=== PATIENT | female | born 1955 | race Caucasian/White ===

== ENCOUNTER → 2016-11-06 | Outpatient (CLI) | payer BC, OTHER ==
[~2016-11-06] MED LIST: AMPH10TA2 PO; EST1; thyroid armour
[2016-11-06 18:17] LABS: THYROID STIMULATING HORMONE 1.05 uIu/ml (0.300-4.500)
== END | disposition home or self-care (01) ==
LOC: C.LABMFLN 13:43
PROVIDERS: ATTEND Internal Medicine Endocrinology, Diabetes & Metabolism
DX: E03.9 Hypothyroidism, unspecified (principal)

== ENCOUNTER → 2016-12-10 | Outpatient (CLI) | payer BC ==
--- NOTE | 2016-12-10 14:37 | DIAGNOSTIC IMAGING REPORT ---
LEFT THUMB 3 VIEWS CLINICAL HISTORY: Left thumb pain COMPARISON: None. DISCUSSION: There are moderate osteoarthritic changes the level the first carpometacarpal joint. No acute fractures are visualized. Mild degenerative changes are present the level of the interphalangeal joint. IMPRESSION: No acute fractures. Moderate osteoarthritic changes at the level of the first carpal metacarpal joint. Electronically signed by: Pratik Cesar M.D. 12/10/2016 2:36 PM Dictated Date/Time: 12/10/2016 2:35 PM
--- NOTE | 2016-12-10 14:38 | DIAGNOSTIC IMAGING REPORT ---
RIGHT THUMB 3 VIEWS CLINICAL HISTORY: Right thumb pain COMPARISON: None. DISCUSSION: There are mild osteoarthritic changes the level the first carpometacarpal joint and interphalangeal joint. No acute fractures are visualized. There are no erosive or destructive changes. IMPRESSION: Mild degenerative change. No acute fractures. Electronically signed by: Pratik Cesar M.D. 12/10/2016 2:37 PM Dictated Date/Time: 12/10/2016 2:36 PM
== END | disposition home or self-care (01) ==
LOC: C.RADBC 14:10
PROVIDERS: ATTEND Anesthesiology
DX: M79.644 Pain in right finger(s) (principal); M79.645 Pain in left finger(s)

== ENCOUNTER → 2017-07-16 | Outpatient (CLI) | payer BC ==
--- NOTE | 2017-07-17 14:34 | MAMMOGRAPHY REPORT ---
BILATERAL DIGITAL SCREENING MAMMOGRAM TOMOSYNTHESIS WITH CAD: 07/16/2017 CLINICAL HISTORY: Routine screening. Patient has no complaints. TECHNIQUE: Breast tomosynthesis in addition to standard 2D mammography was performed. Current study was also evaluated with a Computer Aided Detection (CAD) system. COMPARISON: Comparison is made to exams dated: 07/11/2016 mammogram, 07/03/2015 mammogram, 06/30/2014 mammogram, 06/16/2013 mammogram, 05/18/2012 mammogram, and 05/15/2011 mammogram - [facility] [address] BREAST COMPOSITION: The tissue of both breasts is heterogeneously dense, which may obscure small mas ses. FINDINGS: No suspicious masses, calcifications, or areas of architectural distortion are noted in ei ther breast. There has been no significant interval change compared to prior exams. IMPRESSION: ACR BI-RADS CATEGORY 1: NEGATIVE There is no mammographic evidence of malignancy. A 1 year screening mammogram is recommended. The pa tient will receive written notification of the results. Approximately 10% of breast cancers are not detected with mammography. A negative mammographic report should not delay biopsy if a clinically suggestive mass is present. Robina Garrido M.D. ah/:07/16/2017 16:04:58 Communications Project Lead: Susanna ORTEGA(R)(M), [facility] [address] letter sent: Normal 1/2 BI-RADS Code: ACR BI-RADS Category 1: Negative
== END | disposition home or self-care (01) ==
LOC: C.MAMM 15:44
PROVIDERS: ATTEND Family Medicine
DX: Z12.31 Encounter for screening mammogram for malignant neoplasm of breast (principal)

== ENCOUNTER → 2018-04-16 | Outpatient (CLI) | payer OTHER ==
[2018-04-16 12:48] LABS: HEMATOCRIT 37.6 % (37-47); HEMOGLOBIN 12.4 g/dL (12.0-16.0); MEAN CELL VOLUME 90.2 fL (80-100); MEAN CORPUSCULAR HEMOGLOBIN 29.7 pg (25-34); MEAN PLATELET VOLUME 10.1 fL (7.4-10.4); PLATELET COUNT 220 K/uL (130-400); RED CELL DISTRIBUTION WIDTH CV 13.2 % (11.5-14.5); RED CELL DISTRIBUTION WIDTH SD 43.2 fL (36.4-46.3); WHITE BLOOD COUNT 3.08 K/uL (4.8-10.8)
[2018-04-16 13:11] LABS: BASO ABS # 0.03 K/uL (0-0.2); EOS % 1.9 %; EOS ABS # 0.06 K/uL (0-0.5); LYMPH ABS # 1.54 K/uL (1.2-3.4); MONO ABS # 0.34 K/uL (0.11-0.59); NEUT % 36.1 %; NEUT ABS # 1.11 K/uL (1.4-6.5)
== END | disposition home or self-care (01) ==
LOC: C.LABMFLN 07:02
PROVIDERS: ATTEND Nurse Practitioner Family
DX: R53.83 Other fatigue (principal); D70.9 Neutropenia, unspecified; E03.9 Hypothyroidism, unspecified